=== PATIENT | female | born 1985 ===

== ENCOUNTER 2016-05-10 18:37 | Emergency (ER) | payer SELFPAY ==
[2016-05-10 19:58] VITALS: BP 135/81; PULSE 80; RESP 14; TEMP 98.6; O2SAT 98
--- NOTE | 2016-05-10 21:09 | C.PDOC ---
History Of Present Illness 30 yr old female with PMHx of chronic right hand and wrist pain, presents to the ER with complaints of right wrist and hand pain worsening for the past few days. Patient reports her job requires her to constantly move her hand wrist. Patient denies denies trauma, back pain, shoulder pain, weakness or numbness. Time Seen by Provider: 05/10/16 20:55 Chief Complaint (Nursing): Finger,Hand,&Wrist History Per: Patient History/Exam Limitations: no limitations Onset/Duration Of Symptoms: Worse Since (Few days) Past Medical History Reviewed: Historical Data, Nursing Documentation, Vital Signs Vital Signs: Last Vital Signs Temp 98.6 F 05/10/16 19:53 Pulse 80 05/10/16 19:53 Resp 14 05/10/16 19:53 BP 135/81 05/10/16 19:53 Pulse Ox 98 05/10/16 21:12 Family History: States: No Known Family Hx - Social History Hx Alcohol Use: No Hx Substance Use: No - Immunization History Hx Tetanus Toxoid Vaccination: No Hx Influenza Vaccination: No Hx Pneumococcal Vaccination: No Review Of Systems Except As Marked, All Systems Reviewed And Found Negative. Musculoskeletal: Positive for: Hand Pain (Right hand ), Other ((+) Right wrist tenderness). Negative for: Shoulder Pain, Back Pain Neurological: Negative for: Weakness, Numbness Physical Exam - Physical Exam Appears: Non-toxic, No Acute Distress Skin: Warm, Dry, No Rash Head: Atraumatic, Normacephalic Eye(s): bilateral: Normal Inspection, PERRL, EOMI Oral Mucosa: Moist Neck: Normal ROM Extremity: Normal ROM, Tenderness (Right Hand - tenderness to the dorsal aspect of right wrist. Tender with ulnar deviation.), Capillary Refill (< 2 sec), No Swelling Pulses: Left Radial: Normal, Right Radial: Normal Neurological/Psych: Oriented x3, Normal Speech, Normal Motor, Normal Sensation Gait: Steady ED Course And Treatment O2 Sat by Pulse Oximetry: 98 (on RA) Pulse Ox Interpretation: Normal Medical Decision Making Medical Decision Making: PLAN: * Prednisone PO * Toradol IM Disposition - Disposition Referrals: [facility] [Outside] Disposition: HOME/ ROUTINE Disposition Time: 21:12 Condition: GOOD Additional Instructions: Follow up with the medical doctor within 1-2 days without fail, Return if worsened, Prescriptions: Naproxen [Naprosyn] 500 mg PO BID #20 tab predniSONE [Prednisone] 10 mg PO BID #10 tab Instructions: De Quervain Disease (ED) Forms: Work Excuse Print Language: BHUTANESE - Clinical Impression Clinical Impression: Tendinitis, de Quervain's - PA / [employer]D SYSTEMS ADMINISTRATOR / Resident Statement MD/DO has reviewed & agrees with the documentation as recorded. - Scribe Statement The provider has reviewed the documentation as recorded by the Scribe Gunjan Cardona All medical record entries made by the Breannaibcapo were at my direction and personally dictated by me. I have reviewed the chart and agree that the record accurately reflects my personal performance of the history, physical exam, medical decision making, and the department course for this patient. I have also personally directed, reviewed, and agree with the discharge instructions and disposition.
== END 2016-05-10 21:56 | disposition home or self-care (01) ==
LOC: C.ER 18:37
DX: M65.4 Radial styloid tenosynovitis [de Quervain] (principal)
CPT/HCPCS: 96372; 99284; J1885

== ENCOUNTER 2016-06-01 18:42 | Emergency (ER) | payer OTHER, SELFPAY ==
[2016-06-01 19:03] VITALS: BMI 27.3
[2016-06-01 19:06] VITALS: RESP 18
[2016-06-01] MEDS ORDERED: Sodium Chloride 0.9% 1,000 ML IV ONE ×2 (19:21→19:22)
[2016-06-01] MEDS ORDERED: cefTRIAXone 1,000 MG in Sodium Chloride 0.9% 50 ML IV STA (19:23)
[2016-06-01 19:48] LABS: BASO # 0.1 K/uL (0.0-0.2); BASO % 0.6 % (0.0-2.0); EOS % 0.3 % (0.0-4.0); LYMPH % 12.2 % (20.0-40.0); MEAN CELL VOLUME 82.9 fL (81.0-99.0); MEAN CORPUSCULAR HGB CONC 33.7 g/dL (33.0-37.0); MEAN PLATELET VOLUME 9.3 fL (7.2-11.7); MONO # 0.4 K/uL (0.0-0.8); MONO % 2.2 % (0.0-10.0); RED CELL DISTRIBUTION WIDTH 14.4 % (11.5-14.5)
[2016-06-01 19:51] LABS: CHLORIDE 99 mmol/L (98-107)
[2016-06-01 19:52] LABS: POTASSIUM 3.4 mmol/L (3.6-5.2); SODIUM 138 mmol/L (132-148)
[2016-06-01 19:53] LABS: WHITE BLOOD COUNT 16.4 K/uL (4.8-10.8)
[2016-06-01 19:54] LABS: GFR AFRICAN-AMERICAN > 60
[2016-06-01 19:55] LABS: BLOOD UREA NITROGEN 5 mg/dL (7-17); CALCIUM 8.9 mg/dl (8.6-10.4); CARBON DIOXIDE 28 mmol/L (22-30); GLUCOSE,RANDOM 89 mg/dL (65-105)
--- NOTE | 2016-06-01 20:02 | C.PDOC ---
History Of Present Illness 30 yo female w/o significant PMHx come in for evaluating of fever (T max 102F), sore throat, nasal congestion and dry cough gradually developed for past few days/ Pt admits, today developed significant sore throat, unable to swallow due to pain, some neck swelling. Otherwise, pt denies known trauma or injury, lethargy, drooling, trismus, neck pain, CP, SOB, dyspnea, wheezing, abd. pain, V /D, back pain, UTI sx, denies recent travel or sick contact. Ambulate to Ed for evaluation, appears in pain. Time Seen by Provider: 06/01/16 19:05 Chief Complaint (Nursing): ENT Problem History Per: Patient Onset/Duration Of Symptoms: Gradual Current Symptoms Are (Timing): Worse Past Medical History Reviewed: Historical Data, Nursing Documentation, Vital Signs Vital Signs: Last Vital Signs Temp 98.1 F 06/01/16 20:05 Pulse 78 06/01/16 20:05 Resp 18 06/01/16 20:05 BP 135/72 06/01/16 20:05 Pulse Ox 100 06/01/16 21:21 - Medical History PMH: No Chronic Diseases Surgical History: No Surg Hx Family History: States: No Known Family Hx - Social History Hx Alcohol Use: No Hx Substance Use: No - Immunization History Hx Tetanus Toxoid Vaccination: No Hx Influenza Vaccination: No Hx Pneumococcal Vaccination: No Review Of Systems Except As Marked, All Systems Reviewed And Found Negative. Constitutional: Positive for: Fever. Negative for: Chills Eyes: Negative for: Vision Change ENT: Positive for: Nose Congestion, Throat Pain, Throat Swelling. Negative for : Ear Discharge, Nose Discharge Cardiovascular: Negative for: Chest Pain, Palpitations Respiratory: Positive for: Cough. Negative for: Shortness of Breath, Wheezing Gastrointestinal: Negative for: Nausea, Vomiting, Abdominal Pain Genitourinary: Negative for: Dysuria, Frequency, Incontinence Musculoskeletal: Negative for: Neck Pain, Back Pain Skin: Negative for: Rash Neurological: Negative for: Weakness, Numbness, Altered Mental Status, Headache , Dizziness Physical Exam - Physical Exam Appears: Well, Non-toxic, No Acute Distress Skin: Normal Color, Warm, No Rash Eye(s): bilateral: Normal Inspection Ear(s): Bilateral: Normal Nose: Discharge (B/L congestion) Oral Mucosa: Moist, No Drooling, No Trismus Tongue: Normal Appearing Lips: Normal Appearing Throat: Erythema (B/L with mod edema.), Exudate (Left tonsillar), No Drooling, Other (uvula midine, no edema.) Neck: Normal ROM, Trachea Midline, Supple Lymphatic: Adenopathy (B/L submandibular) Cardiovascular: Rhythm Regular Respiratory: No Decreased Breath Sounds, No Stridor, No Wheezing Gastrointestinal/Abdominal: Normal Exam, Soft, No Tenderness, No Organomegaly Back: Normal Inspection Extremity: Normal ROM, No Pedal Edema, No Deformity Neurological/Psych: Oriented x3, Normal Speech ED Course And Treatment - Laboratory Results Result Diagrams: 06/01/16 19:41 06/01/16 19:41 O2 Sat by Pulse Oximetry: 100 Pulse Ox Interpretation: Normal Progress Note: Pt was OBS in ED for 3 hours and reports moderate improveemnt in sx. On re-eval, pt is afebrile, hemodynamicaly stable. NOn-toxic. Tolerate Po well in Ed. PulseOx 100% RA. Neck: (-) meningeal sign. ENT: exam c/w acute tonsillitis. uvula midline, no edema, No evidence of tonsillar abscess. Lungs: CTA B/L, BS equal B/L. ABd: benign. Neurologicaly intact. Diagnostics review, mild luekocytosis noted. [place] spot- negative. Results and clinical findings review and discussed with pt. Pt advised on course of ds. ref. to F/ u with PMD, ENT In 2-3 days for re-eval. return if any new changes. Disposition Counseled Patient/Family Regarding: Studies Performed, Diagnosis, Need For Followup, Rx Given - Disposition Referrals: Alison Ocasio MD [Staff Provider] - Reg Hudson MD [Staff Provider] - Disposition: HOME/ ROUTINE Disposition Time: 21:16 Condition: STABLE Additional Instructions: Encourage fluids Take medication as prescribed Warm salty water throat gurgles 2-3 times daily for 5 minutes Follow up with PMD, ENT in 2-3 days for re-evaluation. Return to ED if any worsening or new changes. Prescriptions: Amoxicillin/Clavulanate [Augmentin 875 MG-125 MG] 1 tab PO BID #14 tab Prednisone [Deltasone] 40 mg PO DAILY #6 tablet Ibuprofen [Motrin] 1 tab PO TID PRN #14 tab PRN Reason: Pain Instructions: Tonsillitis (ED) Print Language: FRENCH - Clinical Impression Clinical Impression: Acute tonsillitis
[2016-06-01] MEDS ORDERED: cefTRIAXone IV 1 gm in Dextros 50 ML IVPB ONE (20:10)
[2016-06-01 20:21] LABS: RBC URINE 30 /hpf (0-3); URINE BACTERIA RARE (<OCC); URINE BILIRUBIN NEGATIVE (NEGATIVE); URINE BLOOD 2+ (NEGATIVE); URINE COLOR Yellow (YELLOW); URINE GLUCOSE (UA) NORMAL (Normal); URINE KETONE NEGATIVE (NEGATIVE); URINE LEUKOCYTE ESTERASE TRACE Leu/uL (Negative); URINE PROTEIN NEGATIVE (NEGATIVE); URINE UROBILINOGEN NORMAL mg/dL (0.2-1.0); WBC URINE 19 /hpf (0-5)
[2016-06-01] MEDS ORDERED: Sodium Chloride 0.9% 200 ML ONE (20:45)
[2016-06-01 21:17] VITALS: BP 135/72; PULSE 78; TEMP 98.1
[2016-06-01 21:19] VITALS: O2SAT 100
== END 2016-06-01 21:46 | disposition home or self-care (01) ==
LOC: C.ER 18:42
DX: J03.90 Acute tonsillitis, unspecified (principal)
CPT/HCPCS: 80048; 81001; 84703; 85025; 86308; 87070; 87430; 96361; 96365; 96375; 99283; J0696; J1885; J2405; J2930; J7040